=== PATIENT | male | born 1945 | race Caucasian/White ===

== ENCOUNTER → 2020-04-01 | Day surgery (SDC) | payer OTHER ==
--- NOTE | 2020-04-01 15:46 | RADIOLOGY REPORT (SQ) ---
EXAM DESCRIPTION: ARTHRO SHOULDER INJECTION; FLUORO/NEEDLE PLACEMENT IMAGES COMPLETED DATE/TIME: 04/01/2020 3:18 pm REASON FOR STUDY: M24.811 [facility] SPECIFIC JOINT DERANGEMENTS OF RIGHT SHOULDER, [facility] M24.811 OT SPECI FIC JOINT DERANGEMENTS OF RIGHT SHOULDER, N COMPARISON: None. FLUOROSCOPY TIME: FT: 8 seconds. 1 images saved to PACS. LIMITATIONS: None. PROCEDURE: Procedure, risks, benefits and alternatives explained to patient who then gave written co nsent. The right shoulder was marked and a time out was called for correct procedure verification. P osterior entry site marked using fluoroscopic guidance. Shoulder prepped and draped using sterile te chnique. Local anesthesia achieved using 1% lidocaine injection. Hypodermic needle introduced into the joint space under direct fluoroscopic visualization. Non-ionic contrast instilled to confirm intr a-articular position. Dilute gadolinium solution then injected. Needle removed and entry site covere d with sterile bandage. No immediate complications noted. TECHNIQUE: Digital images acquired during fluoroscopy and stored on PACS. Patient immediately take n to the MR suite for additional imaging. INJECTION LOCATION: Posterior right shoulder. CONTRAST TYPE AND AMOUNT: 12 mL Dotarem/Saline mixture. IMPRESSION: SUCCESSFUL NEEDLE PLACEMENT AND INJECTION FOR RIGHT SHOULDER MR ARTHROGRAM USING POSTERI OR APPROACH. COMMENT: Quality ID 145: Final reports for procedures using fluoroscopy that document radiation exp osure indices, or exposure time and number of fluorographic images (if radiation exposure indices are not available) TECHNICAL DOCUMENTATION: JOB ID: [id number] 2010 [employer]- All Rights Reserved Reading location - IP/workstation name: [email or web address] [id number]
--- NOTE | 2020-04-01 15:46 | RADIOLOGY REPORT (SQ) ---
EXAM DESCRIPTION: ARTHRO SHOULDER INJECTION; FLUORO/NEEDLE PLACEMENT IMAGES COMPLETED DATE/TIME: 04/01/2020 3:18 pm REASON FOR STUDY: M24.811 [facility] SPECIFIC JOINT DERANGEMENTS OF RIGHT SHOULDER, [facility] M24.811 OT SPECI FIC JOINT DERANGEMENTS OF RIGHT SHOULDER, N COMPARISON: None. FLUOROSCOPY TIME: FT: 8 seconds. 1 images saved to PACS. LIMITATIONS: None. PROCEDURE: Procedure, risks, benefits and alternatives explained to patient who then gave written co nsent. The right shoulder was marked and a time out was called for correct procedure verification. P osterior entry site marked using fluoroscopic guidance. Shoulder prepped and draped using sterile te chnique. Local anesthesia achieved using 1% lidocaine injection. Hypodermic needle introduced into the joint space under direct fluoroscopic visualization. Non-ionic contrast instilled to confirm intr a-articular position. Dilute gadolinium solution then injected. Needle removed and entry site covere d with sterile bandage. No immediate complications noted. TECHNIQUE: Digital images acquired during fluoroscopy and stored on PACS. Patient immediately take n to the MR suite for additional imaging. INJECTION LOCATION: Posterior right shoulder. CONTRAST TYPE AND AMOUNT: 12 mL Dotarem/Saline mixture. IMPRESSION: SUCCESSFUL NEEDLE PLACEMENT AND INJECTION FOR RIGHT SHOULDER MR ARTHROGRAM USING POSTERI OR APPROACH. COMMENT: Quality ID 145: Final reports for procedures using fluoroscopy that document radiation exp osure indices, or exposure time and number of fluorographic images (if radiation exposure indices are not available) TECHNICAL DOCUMENTATION: JOB ID: [id number] 2010 [email or web address]- All Rights Reserved Reading location - IP/workstation name: [email or web address] [id number]
--- NOTE | 2020-04-01 16:40 | RADIOLOGY REPORT (SQ) ---
EXAM DESCRIPTION: MRI RT UPPER JOINT WITH IMAGES COMPLETED DATE/TIME: 04/01/2020 3:46 pm REASON FOR STUDY: M24.811 OT SPECIFIC JOINT DERANGEMENTS OF RIGHT SHOULDER, [facility] M24.811 OTH SPECI FIC JOINT DERANGEMENTS OF RIGHT SHOULDER, N COMPARISON: None. TECHNIQUE: Post arthrogram MRI right shoulder images acquired and stored on PACS. Multiplanar imagin g to include fat sensitive sequences such as T1, water sensitive sequences such as FST2/STIR, cartila ge sensitive sequences such as FSPD/gradient-echo sequences. LIMITATIONS: Motion artifact throughout the exam FINDINGS: BONE MARROW AND CORTEX: No worrisome bone lesions or marrow replacement. No occult fractur es. JOINT OR BURSAL EFFUSION: Adequate distention. There is leakage of intra-articular gadolinium into t he subacromial/ subdeltoid space through a large rotator cuff defect GLENO-HUMERAL ARTICULATION: No malalignment. Diffuse chondromalacia with mild osteophyte formation ACROMION AND AC JOINT: Type 2 acromion with bulky AC hypertrophy ROTATOR CUFF AND INTERVAL: Broad diffuse tear throughout the distal supra and infraspinatus tendons w ithout muscle atrophy. Subscapularis grossly intact. LABRUM AND BICEPS LABRAL COMPLEX: Intra-articular long head biceps not seen. Diffusely small super ior labrum. PERIARTICULAR AND ADJACENT SOFT TISSUES: No masses or abnormal nodes. OTHER: No other significant finding. IMPRESSION: Full-thickness supra and infraspinatus tendon tear without significant muscle atrophy. TECHNICAL DOCUMENTATION: JOB ID: [id number] 2010 [email or web address]- All Rights Reserved Reading location - IP/workstation name: [email or web address]
== END ==
LOC: RAD 14:25 → EDSTATUS 15:00
PROVIDERS: ATTEND Orthopaedic Surgery
DX: M75.121 Complete rotator cuff tear or rupture of right shoulder, not specified as traumatic (principal); M24.811 Other specific joint derangements of right shoulder, not elsewhere classified
CPT/HCPCS: 73222; 77002; 23350; A9576